=== PATIENT | female | born 1975 | race African-American/Black ===

== ENCOUNTER 2018-11-25 07:22 | Emergency (ER) | payer MEDICAID, MEDICARE ==
[~2018-11-25] VITALS: Ht 157.5 cm; Wt 70.0 kg
[~2018-11-25 07:22] MED LIST: FERR1TAB51; PREN1CAP15; PROG200C11
[2018-11-25 09:13] VITALS: BP 142/89
== END 2018-11-25 09:12 | disposition home or self-care (01) ==
LOC: ER 07:22
DX: T14.8XXA Other injury of unspecified body region, initial encounter (principal); W57.XXXA Bitten or stung by nonvenomous insect and other nonvenomous arthropods, initial encounter; Y93.89 Activity, other specified; Y92.89 Other specified places as the place of occurrence of the external cause; Y99.8 Other external cause status; F12.10 Cannabis abuse, uncomplicated; E78.00 Pure hypercholesterolemia, unspecified; Z98.890 Other specified postprocedural states; Z88.0 Allergy status to penicillin
CPT/HCPCS: 99282; 99283